=== PATIENT | female | born 1995 | race Caucasian/White ===

== ENCOUNTER 2021-05-01 22:31 | Emergency (ER) | payer SELFPAY ==
[~2021-05-01] VITALS: Ht 149.9 cm; Wt 55.8 kg
[2021-05-01 22:38] VITALS: BP 131/87
[2021-05-02] MEDS ORDERED: LIDOCAINE 1% HCL (LOCAL ANESTH.) INJ 20ML MDV IJ ONE (01:30)
== END 2021-05-02 02:08 | disposition home or self-care (01) ==
LOC: ER 22:31
DX: S01.511A Laceration without foreign body of lip, initial encounter (principal); Y08.89XA Assault by other specified means, initial encounter; Y93.89 Activity, other specified; Y92.89 Other specified places as the place of occurrence of the external cause; Y99.8 Other external cause status
CPT/HCPCS: 40650; 70140